=== PATIENT | female | born 1955 | race Caucasian/White ===

== ENCOUNTER → 2020-04-10 | Day surgery (SDC) | payer OTHER ==
[~2020-04-10] MED LIST: ALAVERT10 M1 PO; CALTRATE 600 W1 EACH PO; FENTANYL CITRATE/PF 100MCG/2 ML INJ ONE; MIDAZOLAM HCL 2 MG/2 ML VIAL ONE; PREOP PHACO EYE KIT ONE; VITAMIN D325 MCG PO; ZYRTEC10 M3 PO
[2020-04-10 14:12] VITALS: BP 148/81
== END | disposition home or self-care (01) ==
LOC: OR 10:09
PROVIDERS: ATTEND Ophthalmology
DX: H25.11 Age-related nuclear cataract, right eye (principal); Z88.1 Allergy status to other antibiotic agents; Z01.812 Encounter for preprocedural laboratory examination; Z11.59 Encounter for screening for other viral diseases; Z87.891 Personal history of nicotine dependence
CPT/HCPCS: 66984; J2250; J3010; U0002

== ENCOUNTER → 2020-05-01 | Day surgery (SDC) | payer OTHER ==
[~2020-05-01] MED LIST changes: +OR PHACO EYE KIT ONE
[2020-05-01 11:45] VITALS: BP 158/96
== END | disposition home or self-care (01) ==
LOC: OR 08:12
PROVIDERS: ATTEND Ophthalmology
DX: H25.12 Age-related nuclear cataract, left eye (principal); F41.9 Anxiety disorder, unspecified; Z88.1 Allergy status to other antibiotic agents; Z01.812 Encounter for preprocedural laboratory examination; Z11.59 Encounter for screening for other viral diseases; Z87.01 Personal history of pneumonia (recurrent); Z87.891 Personal history of nicotine dependence
CPT/HCPCS: 66984; J2250; J3010; U0002; V2632